=== PATIENT | male | born 1995 | race Caucasian/White ===

== ENCOUNTER 2017-10-30 08:47 | Emergency (ER) | payer OTHER ==
[~2017-10-30] VITALS: Ht 185.4 cm; Wt 122.1 kg
[2017-10-30 08:59] VITALS: O2SAT 96; Ht 185.4 cm; Wt 122.1 kg
[2017-10-30] MEDS ORDERED: SODIUM CHLORIDE 0.9% 1000ML 1,000 ML IV STA (09:13)
[2017-10-30] MEDS ORDERED: CNC/36 PO (09:26)
[2017-10-30] MEDS ORDERED: TRAZ50TA35 PO (09:26)
[2017-10-30] MEDS ORDERED: CNC/54 PO (09:26)
[2017-10-30] MEDS ORDERED: SERT50TA PO (09:26)
[2017-10-30] MEDS ORDERED: LAMO100T16 PO (09:26)
[2017-10-30] MEDS ORDERED: ACETAMINOPHEN 500 MG TAB PO STA (09:37)
[2017-10-30 09:53] LABS: BASO % 0.1 %; BASO ABS # 0.01 K/uL (0-0.2); COMPLETE YES; EOS % 0.3 %; HEMATOCRIT 44.2 % (42-52); IG% 0.7 %; LYMPH ABS # 1.32 K/uL (1.2-3.4); MEAN CELL VOLUME 87.2 fL (80-100); MEAN CORPUSCULAR HEMOGLOBIN 30.2 pg (25-34); MEAN CORPUSCULAR HGB CONC 34.6 g/dl (32-36); MONO % 6.1 %; NEUT % 79.8 %; PLATELET COUNT 273 K/uL (130-400); RED BLOOD COUNT 5.07 M/uL (4.7-6.1); WHITE BLOOD COUNT 10.16 K/uL (4.8-10.8)
--- NOTE | 2017-10-30 09:58 | EMERGENCY ROOM VISIT NOTE ---
History Report prepared by Khoa: Yomaira Kumar Under the Supervision of: Dr. Maritza Thacker M.D. First contact with patient: 09:01 Chief Complaint: SEIZURE Stated Complaint: POSSIBLE SEIZURE/ HEAD PAIN History of Present Illness The patient is a 22 year old male who presents to the Emergency Room with complaints of a sudden seizure that occurred just prior to arrival. He currently rates his discomfort as a 5/10 in severity. The patient states that he has a history of ADHD, Autism and seizures. He states that this morning he was walking to his [employer] final and his last memory was getting up the third set of stairs. The patient states that he woke to a large group of students around him. He states that he was told he had a seizure and appeared to be post ictal after the event. He states that he has been on Lamictal for his seizures since 2009. The patient states that he was not incontinent of urine or stool. He states that he has been taking his normal medications and reports normal sleeping. The patient denies any drug or stimulant use. He states that he drinks occasionally, noting that his last drink was 3 weeks ago. The patient states that he did hit his head when he fell. He reports that he is experiencing a headache. The patient denies any neck pain, chest pain, or shortness of breath. Source of History: patient Onset: prior to arrival Position: other (global) Symptom Intensity: 5/10 Quality: other (seizure) Timing: other (sudden) Associated Symptoms: + headache, No neck pain, No chest pain, No SOB Note: Associated Symptoms: post ictal Review of Systems See HPI for pertinent positives & negatives. A total of 10 systems reviewed and were otherwise negative. Past Medical & Surgical Medical Problems: (1) ADHD (2) Autism (3) Seizure disorder Family History No pertinent family history stated. Social History Smoking Status: Never Smoker Marital Status: single Occupation Status: [employer] student Current/Historical Medications Scheduled Lamotrigine (Lamictal), 100 MG PO BID Methylphenidate Hcl (Concerta), 36 MG PO QAM Methylphenidate Hcl (Concerta), 54 MG PO QAM Sertraline (Zoloft), 75 MG PO DAILY Trazodone Hcl (Trazodone), 75 MG PO DAILY Allergies Coded Allergies: Cefprozil (Unverified Adverse Reaction, Intermediate, HIVES, 10/30/17) Polyethylene Glycol (Unverified Adverse Reaction, Intermediate, HIVES, ) Physical Exam Vital Signs Date Time Temp Pulse Resp B/P (MAP) Pulse Ox O2 Delivery O2 Flow Rate FiO2 10/30/17 10:48 75 18 107/70 95 Room Air 10/30/17 09:33 77 18 111/67 98 Room Air 10/30/17 08:59 36.4 84 18 112/71 96 Room Air 10/30/17 08:59 96 Room Air 10/30/17 08:57 82 Physical Exam Vital signs reviewed. General: Well-appearing male, in no significant distress. HEENT: No scleral icterus, PERRLA, neck supple. Contusion noted to the right forehead with some swelling and ecchymosis noted. Dried blood in bilateral naris with mild swelling over the nasal bridge. Dry blood to lips without trauma noted to the oral mucosa. No pain with jaw clenching. Cardiovascular: Regular rate and rhythm, no extra sounds. Pulmonary: Clear to auscultation bilaterally, normal work of breathing. Abdomen: Soft, nontender, nondistended, positive bowel sounds. Musculoskeletal: Atraumatic, no peripheral edema. Neurologic: Patient awake alert and oriented x 3, full strength in all 4 extremities. Cranial nerves 2 through 12 grossly intact. Skin: Warm, dry, no rash Medical Decision & Procedures ER Provider Diagnostic Interpretation: CT results as stated below per my review and radiologist interpretation: HEAD CT NONCONTRAST CT DOSE: 855.14 mGy.cm HISTORY: seizure vs syncope, head injury TECHNIQUE: Multiaxial CT images of the head were performed without the use of intravenous contrast. Automated exposure control was utilized for this study. A dose lowering technique was utilized adhering to the principles of ALARA. Comparison: None. Findings: Nondisplaced nasal bone fracture. The visualized paranasal sinuses and mastoid air cells are clear. Right supraorbital soft tissue swelling. Mild right sided scalp swelling. The calvarium and skull base are intact. The ventricles and sulci are within normal limits. There is no mass, hematoma, midline shift, or acute infarct. Impression: 1. Nondisplaced nasal bone fracture. 2. No acute intracranial abnormality. Electronically signed by: Vinayak Virgen M.D. 10/30/2017 10:06 AM Dictated Date/Time: 10/30/2017 10:[address] SCAN OF THE FACIAL BONES WITHOUT IV CONTRAST CLINICAL HISTORY: Facial injury. COMPARISON STUDY: CT of the brain performed concurrently on 10/30/2017. TECHNIQUE: High-resolution CT scan of the facial bones is performed. Images are reviewed in the axial, sagittal, and coronal planes. IV contrast was not administered for this examination. A dose lowering technique was utilized adhering to the principles of ALARA. FINDINGS: The skeletal structures are well mineralized. There is no evidence of facial bone fracture. The bony orbits are intact and the orbital contents are within normal limits. The zygomatic arches, nasal bones, and pterygoid plates are preserved. The maxilla and mandible are intact. There are no layering blood products within the paranasal sinuses. The sinuses and mastoids are clear. The visualized calvarium and upper cervical spine are maintained. Partially imaged brain parenchyma is within normal limits. There is a small right frontal scalp contusion. IMPRESSION: 1. There is no evidence of facial bone fracture. 2. Frontal scalp contusion. Electronically signed by: Dwain Diaz M.D. 10/30/2017 10:06 AM Dictated Date/Time: 10/30/2017 10:03 AM Laboratory Results 10/30/17 09:36 Red Blood Count 5.07, Mean Corpuscular Volume 87.2, Mean Corpuscular Hemoglobin 30.2, Mean Corpuscular Hemoglobin Concent 34.6, Mean Platelet Volume 10.0, Neutrophils (%) (Auto) 79.8, Lymphocytes (%) (Auto) 13.0, Monocytes (%) (Auto) 6.1, Eosinophils (%) (Auto) 0.3, Basophils (%) (Auto) 0.1, Neutrophils # (Auto) 8.11, Lymphocytes # (Auto) 1.32, Monocytes # (Auto) 0.62, Eosinophils # (Auto) 0.03, Basophils # (Auto) 0.01 10/30/17 09:36 Test 10/30/17 09:36 White Blood Count 10.16 K/uL (4.8-10.8) Red Blood Count 5.07 M/uL (4.7-6.1) Hemoglobin 15.3 g/dL (14.0-18.0) Hematocrit 44.2 % (42-52) Mean Corpuscular Volume 87.2 fL (80-100) Mean Corpuscular Hemoglobin 30.2 pg (25-34) Mean Corpuscular Hemoglobin Concent 34.6 g/dl (32-36) Platelet Count 273 K/uL (130-400) Mean Platelet Volume 10.0 fL (7.4-10.4) Neutrophils (%) (Auto) 79.8 % Lymphocytes (%) (Auto) 13.0 % Monocytes (%) (Auto) 6.1 % Eosinophils (%) (Auto) 0.3 % Basophils (%) (Auto) 0.1 % Neutrophils # (Auto) 8.11 K/uL (1.4-6.5) Lymphocytes # (Auto) 1.32 K/uL (1.2-3.4) Monocytes # (Auto) 0.62 K/uL (0.11-0.59) Eosinophils # (Auto) 0.03 K/uL (0-0.5) Basophils # (Auto) 0.01 K/uL (0-0.2) RDW Standard Deviation 40.8 fL (36.4-46.3) RDW Coefficient of Variation 12.9 % (11.5-14.5) Immature Granulocyte % (Auto) 0.7 % Immature Granulocyte # (Auto) 0.07 K/uL (0.00-0.02) Anion Gap 6.0 mmol/L (3-11) Est Creatinine Clear Calc Drug Dose 144.2 ml/min Estimated GFR () 109.9 Estimated GFR (Non- 94.8 BUN/Creatinine Ratio 15.3 (10-20) Calcium Level 8.9 mg/dl (8.5-10.1) Magnesium Level 2.6 mg/dl (1.8-2.4) Total Bilirubin 0.4 mg/dl (0.2-1) Direct Bilirubin < 0.1 mg/dl (0-0.2) Aspartate Amino Transf (AST/SGOT) 22 U/L (15-37) Alanine Aminotransferase (ALT/SGPT) 42 U/L (12-78) Alkaline Phosphatase 76 U/L (45-117) Total Protein 7.9 gm/dl (6.4-8.2) Albumin 4.3 gm/dl (3.4-5.0) Thyroid Stimulating Hormone (TSH) 2.270 uIu/ml (0.300-4.500) Laboratory results per my review. Medications Administered Medications (Trade) Dose Ordered Sig/Jeramie Route Start Time Stop Time Status Last Admin Dose Admin Sodium Chloride 1,000 ml @ 150 mls/hr [id number] STAT IV 10/30/17 09:13 10/30/17 15:52 10/30/17 09:43 150 MLS/HR Acetaminophen (Tylenol Tab) 1,000 mg NOW STAT PO 10/30/17 09:37 10/30/17 09:38 DC 10/30/17 09:43 1,000 MG Lamotrigine (Lamictal Tab) 50 mg NOW STAT PO 10/30/17 11:07 10/30/17 11:08 DC 10/30/17 11:14 50 MG ECG Indication: other (seizure) Rate (beats per minute): 81 Rhythm: normal sinus Findings: nonspecific-ST abn, no acute ischemic change, prolonged QT, no ectopy , other (QTC 469) ED Course 0910: Past medical records reviewed. The patient was evaluated in room A12B. A complete history and physical examination was performed. 0913: Ordered Sodium Chloride 1000 ml @ 150 mls/hr IV. 0937: Ordered Tylenol Tab 1000 mg PO. 1047: I discussed the patients case with Dr. Crum, Neurology. He states that he would bump the patient up 150 mg of Lamictal twice per day, but also said that the patients personal neurologist should be consulted. 1102: I discussed the patients case with Dr. Payne, Neurology. He states that he agrees with Dr. Pathak plan. 1107: Ordered Lamictal Tab 50 mg PO. 1140: I reevaluated the patient and he is doing well. I discussed all the test results with him and I discussed the treatment plan. He verbalized complete understanding and agreement. He is ready to go home shortly. Medical Decision Differential diagnosis: Etiologies such as infection, hypoglycemia, electrolyte abnormalities, cardiac sources, intracerebral event, trauma, toxicologic, neurologic, as well as others were entertained. Medication Reconcilliation Current Medication List: was personally reviewed by me Consults Time Called: [id number] Consulting Physician: Dr. Crum, Neurology Returned Call: [phone] I discussed the patients case with Dr. Crum, Neurology. He states that he would bump the patient up 150 mg of Lamictal twice per day, but also said that the patients personal neurologist should be consulted. Additional Consults: Time Called: 1054 Consulted Physician: Dr. Payne, Neurology Returned Call: [phone] Additional Comments: I discussed the patients case with Dr. Payne, Neurology. He states that he agrees with Dr. Pathak plan. Impression Primary Impression: Seizure disorder Additional Impression: Nasal bone fx-closed Scribe Attestation The scribe's documentation has been prepared under my direction and personally reviewed by me in its entirety. I confirm that the note above accurately reflects all work, treatment, procedures, and medical decision making performed by me. Departure Information Dispostion Home / Self-Care Referrals No Doctor, Assigned (PCP) Forms HOME CARE DOCUMENTATION FORM, IMPORTANT VISIT INFORMATION Patient Instructions My [facility] Additional Instructions Diagnosis: Seizure disorder, nasal bone fracture Increase your Lamictal to 1-1/2 tablets or 150 mg twice daily. Do not drive your car until cleared by neurology. Sleep on a regular schedule. Avoid excessive stimulants. Take your other medications as prescribed. Follow-up with your physician this week for reevaluation, Dr. Payne should be contacting you with an appointment time. If you do not hear from his office this week, call his office. Return to the emergency department for worsening of symptoms or any medical concerns. Problem Qualifiers
--- NOTE | 2017-10-30 10:08 | DIAGNOSTIC IMAGING REPORT ---
CT SCAN OF THE FACIAL BONES WITHOUT IV CONTRAST CLINICAL HISTORY: Facial injury. COMPARISON STUDY: CT of the brain performed concurrently on 10/30/2017. TECHNIQUE: High-resolution CT scan of the facial bones is performed. Images are reviewed in the axial, sagittal, and coronal planes. IV contrast was not administered for this examination. A dose lowering technique was utilized adhering to the principles of ALARA. FINDINGS: The skeletal structures are well mineralized. There is no evidence of facial bone fracture. The bony orbits are intact and the orbital contents are within normal limits. The zygomatic arches, nasal bones, and pterygoid plates are preserved. The maxilla and mandible are intact. There are no layering blood products within the paranasal sinuses. The sinuses and mastoids are clear. The visualized calvarium and upper cervical spine are maintained. Partially imaged brain parenchyma is within normal limits. There is a small right frontal scalp contusion. IMPRESSION: 1. There is no evidence of facial bone fracture. 2. Frontal scalp contusion. Electronically signed by: Dwain Diaz M.D. 10/30/2017 10:06 AM Dictated Date/Time: 10/30/2017 10:03 AM
--- NOTE | 2017-10-30 10:08 | DIAGNOSTIC IMAGING REPORT ---
HEAD CT NONCONTRAST CT DOSE: 855.14 mGy.cm HISTORY: seizure vs syncope, head injury TECHNIQUE: Multiaxial CT images of the head were performed without the use of intravenous contrast. Automated exposure control was utilized for this study. A dose lowering technique was utilized adhering to the principles of ALARA. Comparison: None. Findings: Nondisplaced nasal bone fracture. The visualized paranasal sinuses and mastoid air cells are clear. Right supraorbital soft tissue swelling. Mild right sided scalp swelling. The calvarium and skull base are intact. The ventricles and sulci are within normal limits. There is no mass, hematoma, midline shift, or acute infarct. Impression: 1. Nondisplaced nasal bone fracture. 2. No acute intracranial abnormality. Electronically signed by: Vinayak Virgen M.D. 10/30/2017 10:06 AM Dictated Date/Time: 10/30/2017 10:01 AM
[2017-10-30 10:13] LABS: ALT/SGPT 42 U/L (12-78); AST/SGOT 22 U/L (15-37); BLOOD UREA NITROGEN 17 mg/dl (7-18); BUN/CREATININE RATIO 15.3 (10-20); CALCIUM 8.9 mg/dl (8.5-10.1); CARBON DIOXIDE 26 mmol/L (21-32); CHLORIDE 107 mmol/L (98-107); GLUCOSE 100 mg/dl (70-99); MAGNESIUM 2.6 mg/dl (1.8-2.4); POTASSIUM 4.2 mmol/L (3.5-5.1); SODIUM 139 mmol/L (136-145)
[2017-10-30 10:24] LABS: ALKALINE PHOSPHATASE 76 U/L (45-117)
[2017-10-30 11:57] VITALS: BP 110/73; PULSE 72; O2SAT 96
== END 2017-10-30 11:59 | disposition home or self-care (01) ==
LOC: C.EDA 08:50
DX: G40.909 Epilepsy, unspecified, not intractable, without status epilepticus (principal); S02.2XXA Fracture of nasal bones, initial encounter for closed fracture; W19.XXXA Unspecified fall, initial encounter; W22.8XXA Striking against or struck by other objects, initial encounter; F84.0 Autistic disorder; F90.9 Attention-deficit hyperactivity disorder, unspecified type; Z79.899 Other long term (current) drug therapy